=== PATIENT | male | born 1990 | race African-American/Black ===

== ENCOUNTER 2022-04-09 03:51 | Emergency (ER) | payer MEDICAID, OTHER ==
[~2022-04-09] VITALS: Ht 188 cm; Wt 89.0 kg
[2022-04-09 04:52] LABS: APPEARANCE,URINE CLEAR (CLEAR); BILIRUBIN,URINE NEGATIVE (NEGATIVE); GLUCOSE, URINE (UA) NEGATIVE (NEGATIVE); KETONES,URINE NEGATIVE (NEGATIVE); LEUKOCYTE ESTERASE ,URINE NEGATIVE (NEGATIVE); NITRATE,URINE NEGATIVE (NEGATIVE); OCCULT BLOOD,URINE NEGATIVE (NEGATIVE); PH,URINE 6.5 (5.0-8.0); PROTEIN,URINE TRACE mg/dL (NEGATIVE); SPECIFIC GRAVITIY, URINE 1.025 (1.003-1.030)
[2022-04-09 05:10] LABS: BACTERIA,URINE None Seen /HPF (None Seen); RBC,URINE None Seen /HPF (0-2); WBC,URINE None Seen /HPF (0-5)
[2022-04-09 05:16] VITALS: BP 128/66
[2022-04-09] MEDS ORDERED: CefTRIAXone SODIUM 1 GM/VIAL IM ONE (06:30)
[2022-04-09] MEDS ORDERED: LIDOCAINE/PF 1% 2 ML VIAL IM ONE (06:30)
[2022-04-09] MEDS ORDERED: DOXYCYCLINE HYCLATE 100 MG TABLET PO ONE (06:30)
[2022-04-09] MEDS ORDERED: DOXY-354 PO (06:34)
== END 2022-04-09 07:02 | disposition home or self-care (01) ==
LOC: EMS 03:53
DX: L03.211 Cellulitis of face (principal)
CPT/HCPCS: 99283; 81001; 87491; 87591; 96372; J0696; J3490